=== PATIENT | female | born 1985 | race Caucasian/White ===

== ENCOUNTER 2022-03-21 05:24 | Emergency (ER) | payer OTHER ==
[~2022-03-21] VITALS: Ht 167.6 cm; Wt 81.4 kg
[2022-03-21 06:41] VITALS: BP 105/92
== END 2022-03-21 06:41 | disposition home or self-care (01) ==
LOC: ED 05:24
DX: H69.81 Other specified disorders of Eustachian tube, right ear (principal)

== ENCOUNTER → 2023-09-07 | Outpatient (CLI) | payer OTHER ==
[~2023-09-07] VITALS: Ht 167.6 cm; Wt 99.8 kg
[~2023-09-07] MED LIST: LINZESS145 MCG; Regadenoson 0.08 MG/ML 5 ML VIAL IV SCH
== END ==
LOC: CARDREHAB 07:46
DX: R07.89 Other chest pain (principal)
CPT/HCPCS: A9500; J2785